=== PATIENT | female | born 1960 | race Caucasian/White ===

== ENCOUNTER 2018-01-08 20:45 | Inpatient (IN) | payer OTHER ==
[~2018-01-08] VITALS: Ht 154.9 cm; Wt 68.7 kg
[~2018-01-08 20:45] MED LIST: NEXIUM40 MG PO; XANAX0.5 MG PO
[2018-04-10 11:40] VITALS: BP 105/66
[2018-04-10 19:47] VITALS: BP 123/65
[2018-04-10 20:00] VITALS: BP 123/65
[2018-04-10 23:20] VITALS: BP 106/52
[2018-04-11 03:10] VITALS: BP 107/52
[2018-04-11] MEDS ORDERED: HYDROCODON-ACE1 EAC7 PO (07:20)
[2018-04-11] MEDS ORDERED: TIZANIDINE HCL4 MG PO (07:20)
[2018-04-11 08:24] VITALS: BP 101/53
== END 2018-04-11 09:08 | disposition home or self-care (01) | DRG 455 ==
LOC: CANRESERV 20:45 → ENRESERV 20:45 → 2SOUTH 01-09 06:20 → ENRESERV 04-09 21:41 → 2SOUTH 04-10 11:03 → ENRESERV 04-10 16:36 → 3EAST 04-10 19:35
DX: M99.03 Segmental and somatic dysfunction of lumbar region (principal); M48.061 Spinal stenosis, lumbar region without neurogenic claudication; M46.86 Other specified inflammatory spondylopathies, lumbar region; M51.17 Intervertebral disc disorders with radiculopathy, lumbosacral region; M25.78 Osteophyte, vertebrae; G89.18 Other acute postprocedural pain; G89.29 Other chronic pain; K21.9 Gastro-esophageal reflux disease without esophagitis; Z87.891 Personal history of nicotine dependence
CPT/HCPCS: 72100; 76000; 86850; 86900; 86901; J0131; J0690; J1100; J1170; J1580; J2250; J2405; J2710; J2930; J3010; J3370; J3480; J7643; S0020